=== PATIENT | female | born 1955 | race Caucasian/White ===

== ENCOUNTER 2021-07-29 10:01 | Emergency (ER) | payer BC ==
[~2021-07-29] VITALS: Ht 157.5 cm; Wt 64.3 kg
[2021-07-29] MEDS ORDERED: ACET-645 PO (10:34)
[2021-07-29] MEDS ORDERED: ELIQ5TAB PO (10:34)
[2021-07-29] MEDS ORDERED: DILT120C78 PO (10:34)
[2021-07-29] MEDS ORDERED: ANOR1AER PO (10:34)
[2021-07-29] MEDS ORDERED: ALPR0.5T3 PO (10:34)
[2021-07-29] MEDS ORDERED: TRAM50TA2 PO (10:34)
[2021-07-29] MEDS ORDERED: LEXA1TAB2 PO (10:34)
[2021-07-29] MEDS ORDERED: MORPHINE 4 MG/ML 1ML VIAL/SYRINGE IV ONE (11:25)
[2021-07-29] MEDS ORDERED: METOCLOPRAMIDE INJ 10MG/2ML VIAL (J2765 PER 1) IV ONE (11:25)
[2021-07-29] MEDS ORDERED: NS 1,000 ML IV ONE (11:25)
[2021-07-29 11:51] LABS: BASO # 0.1 10^3/uL (0.0-0.2); BASO % 1.2 % (0.0-1.0); EOS # 0.1 10^3/uL (0.0-0.5); HEMATOCRIT 46.2 % (36.0-47.0); HEMOGLOBIN 14.4 g/dl (12.0-15.5); LYMPH # 1.1 10^3/uL (1.5-5.0); MEAN CORPUSCULAR HEMOGLOBIN 24.3 pg (27.0-33.0); MEAN CORPUSCULAR HGB CONC 31.2 g/dl (32.0-36.5); MEAN CORPUSCULAR VOLUME 77.9 fl (80.0-96.0); MONO # 0.8 10^3/uL (0.0-0.8); MONO % 16.4 % (2.0-8.0); PLATELET COUNT, AUTOMATED 293 10^3/uL (150-450); RED BLOOD COUNT 5.93 10^6/uL (4.00-5.40)
[2021-07-29 12:21] LABS: BLOOD UREA NITROGEN 8 MG/DL (7-18); CALCIUM LEVEL 8.9 MG/DL (8.8-10.2); CARBON DIOXIDE LEVEL 28 MEQ/L (21-32); CHLORIDE LEVEL 102 MEQ/L (98-107); CREATININE FOR GFR 0.89 MG/DL (0.55-1.30); GLOMERULAR FILTRATION RATE > 60.0 (>45); GLUCOSE, FASTING 80 MG/DL (70-100); MAGNESIUM LEVEL 2.5 MG/DL (1.8-2.4); SODIUM LEVEL 136 MEQ/L (136-145)
[2021-07-29] MEDS ORDERED: CAPS0.022 TOP (13:11)
[2021-07-29] MEDS ORDERED: DICL20GE TP (13:11)
[2021-07-29 13:25] VITALS: BP 116/65
== END 2021-07-29 13:26 | disposition home or self-care (01) ==
LOC: M ED 10:01
DX: R51.9 Headache, unspecified (principal); M25.562 Pain in left knee; M25.521 Pain in right elbow; W00.0XXA Fall on same level due to ice and snow, initial encounter; Y92.9 Unspecified place or not applicable; Y93.9 Activity, unspecified; Y99.9 Unspecified external cause status; I48.91 Unspecified atrial fibrillation; J44.9 Chronic obstructive pulmonary disease, unspecified; F17.200 Nicotine dependence, unspecified, uncomplicated; Z88.0 Allergy status to penicillin; Z88.2 Allergy status to sulfonamides; Z91.030 Bee allergy status; Z79.899 Other long term (current) drug therapy; Z79.01 Long term (current) use of anticoagulants
CPT/HCPCS: 70450; 73564; 80048; 83735; 85025; 96361; 96374; 96375; 99284; J2270; J2765